=== PATIENT | male | born 1995 | race Caucasian/White ===

== ENCOUNTER 2019-06-20 22:53 | Emergency (ER) | payer OTHER ==
[~2019-06-20] VITALS: Ht 170.2 cm; Wt 75.0 kg
--- NOTE | 2019-06-20 23:13 | NUR ---
PATIENT PRESENTS TO THE EMERGENCY DEPARTMENT WITH C/O "HEART BEATING HARD". PT. 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 HE DENIES PALPITATIONS BUT REPORTS IT FELT LIKE IT WAS BEATING HARD AND FAST. REPORTS AT THIS TIME HE HAD SOME MILD DIZZINESS AND SHORTNESS OF BREATH. HE DENIES ANY RECENT COUGH,COLD, OR FEVER. HE DENIES ANY RECENT ILLNESS. REPORTS HE IS OTHERWISE HEALTHY AND DENIES ANY ALCOHOL/DRUG USE. REPORTS HE DRANK A BANG ENERGY DRINK AROUND 1800. REPORTS HE DRINKS AROUND 2-3 OF THESE PER WEEK. REPORTS DECREASED ORAL FLUID INTAKE. DENIES CARDIAC HX.
--- NOTE | 2019-06-20 23:32 | NUR ---
PATIENT TO AND FROM XRAY. LABS DRAWN AND SENT. NSR ON DIABETOLOGIST.
[2019-06-20 23:45] LABS: BASOPHILS # (AUTO) 0.03 x10^3/uL (0-0.1); BASOPHILS % (AUTO) 1 % (0-1); EOSINOPHILS # (AUTO) 0.11 x10^3/uL (0-0.4); EOSINOPHILS % (AUTO) 2 % (1-7); LYMPHOCYTES # (AUTO) 1.43 x10^3/uL (1-3.4); LYMPHOCYTES % (AUTO) 23 % (22-44); MD NO; MEAN CORPUSCULAR HEMOGLOBIN 30.4 pg (27.5-34.5); MEAN CORPUSCULAR VOLUME 89.3 fL (81-97); MEAN PLATELET VOLUME 8.5 fL (7.4-10.4); MONOCYTES # (AUTO) 0.26 x10^3/uL (0.2-0.8); MONOCYTES % (AUTO) 4 % (2-9); NEUTROPHILS % (AUTO) 70 % (42-75); PLATELET COUNT 237 x10^3/uL (130-400); RED BLOOD COUNT 5.36 x10^6/uL (4.38-5.82); RED CELL DISTRIBUTION WIDTH 12.8 % (9.4-14.8)
[2019-06-20 23:50] LABS: ALANINE AMINOTRANSFERASE 20 U/L (12-78); ALBUMIN 4.6 g/dL (3.4-5.0); ANION GAP 6 mmol/L (5-15); CALCIUM 8.9 mg/dL (8.5-10.1); CHLORIDE 106 mmol/L (98-107); CREATININE 1.56 mg/dL (0.7-1.3)
[2019-06-20 23:55] LABS: ALKALINE PHOSPHATASE 61 U/L (45-117); BILIRUBIN,TOTAL 0.5 mg/dL (0.2-1.0); T4 (THYROXINE) 9.9 mcg/dL (4.5-12.1); TOTAL PROTEIN 7.3 g/dL (6.4-8.2); TROPONIN I < 0.015 ng/mL (0.000-0.045)
[2019-06-21 00:10] VITALS: BP 121/81
== END 2019-06-21 00:13 | disposition home or self-care (01) ==
LOC: ED 23:34
DX: R00.2 Palpitations (principal); R94.31 Abnormal electrocardiogram [ECG] [EKG]; R42 Dizziness and giddiness; R06.02 Shortness of breath
CPT/HCPCS: 36415; 71046; 80053; 83735; 84436; 84443; 84484; 85025; 93005; 99285